=== PATIENT | male | born 1975 | race African-American/Black ===

== ENCOUNTER 2020-11-13 08:33 | Emergency (ER) | payer OTHER, MEDICAID, SELFPAY ==
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
[2020-11-13 08:40] VITALS: BP 170/107; PULSE 75; RESP 18; TEMP 36.7; O2SAT 98; BMI 37.5
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
[2020-11-13] MEDS: Ibuprofen 600 MG TABLET PO (09:18)
[2020-11-13] MEDS: diazePAM 5 MG TABLET PO (09:18)
== END 2020-11-13 10:18 | disposition home or self-care (01) ==
PROVIDERS: Emergency Provider Emergency Medicine; PCP Internal Medicine
DX: S16.1XXA Strain of muscle, fascia and tendon at neck level, initial encounter (principal); V43.52XA Car driver injured in collision with other type car in traffic accident, initial encounter; Y93.89 Activity, other specified; Y92.414 Local residential or business street as the place of occurrence of the external cause; Y99.9 Unspecified external cause status
CPT/HCPCS: 70450; 72125; 99284

== ENCOUNTER 2023-01-19 16:14 | Outpatient (REF) | payer MEDICAID, SELFPAY | END 2023-01-19 16:15 | disposition home or self-care (01) | LOC: HO.HHCLNP 16:14 | PROVIDERS: Visit Provider Internal Medicine | DX: R09.81 Nasal congestion (principal); Z11.52 Encounter for screening for COVID-19 | CPT/HCPCS: 0241U ==

== ENCOUNTER 2023-01-26 08:16 | Outpatient (AMB) | payer MEDICAID, SELFPAY ==
--- NOTE | 2023-01-26 08:49 | A.OFFVIS_ITS ---
Intake Vital Signs 01/26/23 08:52 Height 5 ft 8 in Weight 260 lb BMI 39.5 BP 107/71 Blood Pressure Location Lt brachial Position Sitting Pulse 66 Intake Visit Reasons: pre colonoscopy screening Intake Note: Patient new consult for 2nd colonoscopy screening. Patient cc: acid reflex with burning sensation. Denies any other GI issues. 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 male here today for pre col onoscopy screening.? Patient was sent to us by his PCP.? Patient reports that he had upper endoscopy and colonoscopy in 2009 for questioning GI bleed. Patient was diagnosed with internal hemorrhoids then. Patient had minor brainstem stroke in 2008. Patient reports residuals after stroke that include left leg decreased sensation hot versus cold. Unable to open his right eye fully, visible ptosis. Patient reports that depending what he eats he will have acid reflux, however he states that it happens infrequently.? Denies any personal or family history of gastrointestinal disease, colon polyps, or cancer.? Denies history of difficulty with sedation or anesthesia in the past.? Diagnosed with sleep apnea in the past, has not used CPAP machine recently.? Denies any history of cardiac, renal, pulmonary, or hepatic disease.?? No history of infectious? diseases like hepatitis A, B, C, HIV or tuberculosis.? Patient is not on any anticoagulation therapy. [facility] Medical History (Updated 11/14/20 @ 00:02 by Héctor Edwards) CVA (cerebral vascular accident) HTN (hypertension) Surgical History (Updated 01/26/23 @ 08:50 by Marilin Lainez) Hx of elbow surgery Hx of knee surgery Hx of colonoscopy Social History (Updated 01/26/23 @ 08:51 by Marilin Lainez) Household Members: Family Alcohol intake: never Patient Tobacco Use Status: Never used Tobacco Use of substances other than those prescribed or required for medical reasons: Yes Substance Use Type: Marijuana Review of Systems Const Denies weight gain and Denies weight loss ENT Reports no additional complaints, Denies dysphagia and Denies odynophagia Card Reports no additional complaints Resp Reports no additional complaints GI Denies abdominal pain, Denies belching, Denies melena, Denies bloating, Denies change in bowel habits, Denies dysphagia, Denies excessive flatus, Denies dyspepsia, Reports heartburn, Denies diarrhea, Denies loose stools, Denies nausea, Denies odynophagia and Denies vomiting Reports no additional complaints Musc Reports no additional complaints Neuro Reports no additional complaints Psych Reports no additional complaints Endo Reports no additional complaints Physical Exam Vital Signs: Last Vital Signs Pulse 66 01/26/23 08:52 BP 107/71 01/26/23 08:52 BMI result Body Mass Index 39.5 Const General: healthy appearing, no acute distress and well developed Nutritional Appearance: obese Orientation/consciousness: patient oriented x3 HEENT Head: Yes normal to inspection, Yes normocephalic and Yes atraumatic Face and sinus: Yes normal facial exam Mouth: Normal oral and palatal mucosa present Throat: Yes posterior oropharynx normal, Yes tonsils normal and Yes uvula midline Eyes General: appearance normal, both eyes and all related structures Neck Neck: Yes normal visual inspection, Yes full ROM and Yes trachea midline Thyroid: Thyroid normal Resp Effort & Inspection: normal respiratory effort, able to speak in complete sentences, no tracheal deviation and symmetric chest movement Auscultation: clear to auscultation bilaterally Cardio Rate: regular rate Heart sounds: S1 normal heart sound present and S2 normal heart sound present GI Inspection: Yes normal to inspection, No distended and Yes obesity Palpation (GI): Soft to palpation, not firm, nontender and No hepatosplenomegaly present Auscultation: normal bowel sounds General: Yes no CVA tenderness Back/Spine/Pelvis Back: no CVA tenderness Skin General skin exam: elasticity normal, turgor normal and dry skin Neuro General: patient oriented x3 Psych Appearance: grossly normal Mental Status: mental status grossly normal Assessment & Plan Assessment & Plan (1) Screen for colon cancer: Code(s): Z12.11 - Encounter for screening for malignant neoplasm of colon Plan: Patient denies any GI, cardiac or respiratory symptoms.? Denies any issues with anesthesia in the past.? History of sleep apnea not using CPAP machine.? No history infectious diseases in the past or present.? Not on any anticoagulation therapy.? No family or personal history of colon cancer or polyps.? Patient denies melena, hematochezia, unintentional weight loss or ribbon like stools.? Discussed at length the pre-procedure,? prep, diet & medications as well as what to expect prior, during and after the procedure.?? Stressed the importance of good bowel prep. ?Recommended the use of Vaseline or Calmoseptine OTC & baby wipes with bowel movements to promote comfort.? ?Patient verbalizes understanding and agrees to plan of care.? He was given the opportunity to ask questions and all questions answered.? We will see him after the procedure.? Medications: New bisacodyl (Dulcolax (bisacodyl)) take 2 tabs at noon the day before your colonoscopy 20 mg (4 x 5 mg) PO ONCE 4 tabs 0RF 1 day Z12.11 - Encounter for screening for malignant neoplasm of colon polyethylene glycol 3350 (Miralax) As directed by gastroenterology department at [facility] 238 grams PO ONCE 238 grams 0RF Z12.11 - Encounter for screening for malignant neoplasm of colon Coding Level of Care Code New Pt Level 3 (93789) Diagnoses Screen for colon cancer Z12.11 Time Spent (min) 40 Comment 30 minutes spent with patient and additional 10 minutes spent reviewing his records
[2023-01-26 08:52] VITALS: BP 107/71; PULSE 66; BMI 39.5
== END 2023-01-26 09:31 | disposition home or self-care (01) ==
PROVIDERS: PCP Internal Medicine; Visit Provider Nurse Practitioner Family
DX: Z01.818 Encounter for other preprocedural examination (principal); Z12.11 Encounter for screening for malignant neoplasm of colon
CPT/HCPCS: 99202

== ENCOUNTER → 2023-01-26 08:16 | Outpatient (BNVA) | payer MEDICAID, SELFPAY | PROVIDERS: PCP Internal Medicine; Visit Provider Nurse Practitioner Family | DX: Z01.818 Encounter for other preprocedural examination (principal) | CPT/HCPCS: 99212 ==

== ENCOUNTER 2023-08-21 08:39 | Day surgery (SDC) | payer OTHER, SELFPAY ==
--- NOTE | 2023-08-21 08:44 | HO.ANESPROP2 ---
[facility] Past Medical History Medical History CVA (cerebral vascular accident) HTN (hypertension) Family History Family history of problems with anesthesia: No Surgical History Surgical History Hx of elbow surgery Hx of knee surgery Hx of colonoscopy History of Problems with Anesthesia: No Social History Social History (Updated 01/26/23 @ 08:51 by Marilin Lainez) Household Members: Family Alcohol intake: never Patient Tobacco Use Status: Never used Tobacco Substance Use Type: Marijuana Substance Use Frequency: Daily Are you DNR?: No Advance Directives: No Advance Directives Information Provided: Yes Nutrition Risks: No Nutritional Risk Meds Allergies Allergy/AdvReac Type Severity Reaction Status Date / Time No Known Allergies Allergy Verified 08/21/23 09:11 Home Medications ?Medication ?Instructions ?Recorded ?Confirmed ?Last Taken ?Type amlodipine 5 mg tablet 5 mg PO DAILY 01/26/23 08/21/23 Unknown History atorvastatin 40 mg tablet 40 mg PO QAM 01/26/23 08/21/23 Unknown History Exam Airway Mallampati Class: III TM Dist: >3cm Neck ROM: Full Heart: rrr Lungs: cta Assessment and Plan Assessment Anesthesia Assessment: Anesthesia Plan Discussed and Chart Reviewed Final Anesthetic Review Family History of Problems with Anesthesia: No History of Problems with Anesthesia: No NPO: Yes ASA Class: III Final Preanesthetic Review: No Changes in Pt Med Stat, Meds/Allgs Chart Reviewed and Consent Obtained/Reviewed Patient Risk: Low Procedure Risk: Low Anesthetic Plan Anesthetic Plan: MAC: Disposition: Standard PACU
[2023-08-21 09:00] VITALS: BMI 38.3
[2023-08-21 09:12] VITALS: BP 145/90; PULSE 73; RESP 18; TEMP 36.8; O2SAT 96
--- NOTE | 2023-08-21 09:13 | P.HPSUR_ITS ---
Pre-Procedural Eval Section A - 24 Hr Update-Section A only Date of Service: 08/21/23 Section B - Complete if H&P > 30 days Chief Complaint: Encounter for screening for malignant neoplasm of Relevant Family History (Specify if Yes): No Relevant Social History: None Present Medications: see Short Stay Collaborative assessment Medical History: Significant History (CVA (cerebral vascular accident) HTN (hy pertension)) History of Previous Operations: Relevant previous surgery/procedure and date(s) (Hx of elbow surgery Hx of knee surgery Hx of colonoscopy) Allergies: Allergies Allergy/AdvReac Type Severity Reaction Status Date / Time No Known Allergies Allergy Verified 08/21/23 09:11 Review of Systems Sugical H&P ROS: Negative: Constitution, Cardiovascular and Respiratory and Yes, Specify: Gastrointestinal (GERD) Exam Surgical H&P Exam: Normal: Heart, Normal: Lungs, Normal: Extremities and Normal: Abdomen Plan Diagnosis/Plan: Unchanged I have reviewed the history and physical and performed a pertinent physical examination on my patient. No changes have occurred unless specified. Time Spent With Patient Time: Total time managing care of this patient today ____ minutes.
[2023-08-21] MEDS: Lactated Ringers 1,000 ML 50 ML IVCONT (09:23)
--- NOTE | 2023-08-21 09:50 | P.OPN-COLO_ITS ---
Colonoscopy Operative Note Operative Note Date of Service: 08/21/23 Narrative: COLONOSCOPY TILL CECUM Pre-op diagnosis: Colon cancer screening. Post-op diagnosis:? Diverticulosis, hemorrhoids Endoscopist:? Patricia Ritter MD Anesthesia:?MAC Consent: Indications for the procedure and potential complications of bleeding, perforation, reaction to medications and missed diagnosis were discussed with the patient and informed consent was obtained. Instrument: Olympus CF H 190 L variable stiffness adult colonoscope Monitoring: Vital signs and clinical assessment, intermittent blood pressure monitoring, continuous EKG monitoring, Pulse oximetry and Carbon Dioxide monitoring were done throughout the procedure. Please see anesthesia flowsheet. Colon withdrawl time was 15 minutes. Procedure: The patient was placed in the left lateral decubitis position and pre-procedure medications were administered. After a digital rectal examination of the ano-rectum, the video colonoscope was inserted into the rectum and advanced through the colon to the cecum. The colonoscope was slowly withdrawn in a retrograde panoramic fashion and the colon mucosa was carefully examined including a retroflexed view of the rectum. Findings and interventions are described below. Procedure Difficulty: without difficulty Findings: Terminal Ileum: Not evaluated Cecum: Normal Ascending Colon: Scattered moderate diverticulosis throughout the entire colon Transverse Colon: Scattered moderate diverticulosis throughout the entire colon Descending Colon: Scattered moderate diverticulosis throughout the entire colon Sigmoid Colon: Moderate diverticulosis Rectum: Normal Ano-rectum: Moderate internal hemorrhoids Colon preparation: Excellent after some irrigation. [place] Bowel Preparation Scale Right colon; 3 Transverse colon: 3 Left colon; 3 (0 = Unprepared colon segment with mucosa not seen due to solid stool that cannot be cleared. 1 = Portion of mucosa of the colon segment seen, but other areas of the colon segment not well seen due to staining, residual stool and/or opaque liquid. 2 = Minor amount of residual staining, small fragments of stool and/or opaque liquid, but mucosa of colon segment seen well. 3 = Entire mucosa of colon segment seen well with no residual staining, small fragments of stool or opaque liquid) Impression and Post Procedure Diagnosis: Colonoscopy Findings: No polyps were detected Moderate diverticulosis seen in the entire colon Moderate hemorrhoids on retroflexed exam. Plan: Repeat Colonoscopy in 10 years. A summary of colonoscopy findings and relevant handouts were given to the patient in the discharge area.
[2023-08-21 10:24] VITALS: BP 124/71; PULSE 76; RESP 16; TEMP 36.2; O2SAT 96
[2023-08-21 10:37] VITALS: BP 157/100; PULSE 69; RESP 18; O2SAT 95
[2023-08-21 10:51] VITALS: BP 157/97; PULSE 62; RESP 17; TEMP 36.6; O2SAT 99
== END 2023-08-21 11:16 | disposition home or self-care (01) ==
PROVIDERS: PCP Internal Medicine; Visit Provider Internal Medicine Gastroenterology
PROC: 0DJD8ZZ Inspection of Lower Intestinal Tract, Via Natural or Artificial Opening Endoscopic (ICD-10-PCS; CPT 45378; principal; 2023-08-21 10:10)
DX: Z12.11 Encounter for screening for malignant neoplasm of colon (principal); K57.30 Diverticulosis of large intestine without perforation or abscess without bleeding; K64.8 Other hemorrhoids; I10 Essential (primary) hypertension; Z86.73 Personal history of transient ischemic attack (TIA), and cerebral infarction without residual deficits
CPT/HCPCS: 45378; J2250; J2704

== ENCOUNTER → 2023-08-21 08:39 | Outpatient (BNV) | payer OTHER, SELFPAY | PROVIDERS: PCP Internal Medicine; Visit Provider Internal Medicine Gastroenterology | DX: Z12.11 Encounter for screening for malignant neoplasm of colon (principal); K57.90 Diverticulosis of intestine, part unspecified, without perforation or abscess without bleeding; K64.8 Other hemorrhoids | CPT/HCPCS: 45378 ==